=== PATIENT | male | born 1980 | race Hispanic/Latino ===

== ENCOUNTER 2021-07-24 10:51 | Observation (INO) | payer BC ==
[~2021-07-24] VITALS: Ht 172.7 cm; Wt 97.6 kg
[2021-07-24 12:06] LABS: BASOPHILS % (AUTO) 0.6 % (0.0-5.0); EOSINOPHILS % (AUTO) 2.3 % (0.0-8.0); HEMATOCRIT 50.1 % (42-54); LYMPHOCYTES % (AUTO) 24.8 % (21.0-51.0); MEAN CORPUSCULAR HEMOGLOBIN 30.1 pg (27.0-33.0); MEAN CORPUSCULAR HGB CONC 33.3 g/dL (32.0-36.0); MEAN CORPUSCULAR VOLUME 90.4 fL (79-99); MONOCYTES % (AUTO) 10.4 % (3.0-13.0); NEUTROPHILS % (AUTO) 61.6 % (40.0-77.0); PLATELET COUNT (AUTO) 143 K/uL (130-400); RED BLOOD CELL COUNT(AUTO) 5.54 MIL/uL (4.50-6.20); RED CELL DISTRIBUTION WIDTH 13.2 % (11.0-15.5); WHITE BLOOD COUNT (AUTO) 6.6 K/uL (4.8-10.8)
[2021-07-24 12:19] LABS: INR 0.99 (0.85-1.15); PROTHROMBIN TIME 10.8 SEC (9.6-11.6)
[2021-07-24 12:25] LABS: CREATININE 1.2 mg/dL (0.5-1.5); POTASSIUM 4.5 mmol/L (3.5-5.1)
[2021-07-24] MEDS ORDERED: NITROGLYCERIN 1GM OINT 1 INCH/1GM TD SCH (12:30)
[2021-07-24] MEDS ORDERED: NITROGLYCERIN 0.4 MG SL TAB SL PRN (12:30)
[2021-07-24] MEDS ORDERED: ASPIRIN 325MG TAB PO SCH (12:30)
[2021-07-24 12:37] LABS: ALBUMIN 4.2 g/dL (3.5-5.0); BILIRUBIN,TOTAL 0.7 mg/dL (0.2-1.0); TOTAL PROTEIN, SERUM 8.1 g/dL (6.0-8.3)
[2021-07-24 12:49] LABS: APPEARANCE,URINE Clear (CLEAR); BILIRUBIN,URINE Negative (NEGATIVE); COLOR,URINE Yellow (YELLOW); GLUCOSE, URINE (UA) >=1000 mg/dL (NEGATIVE); KETONES,URINE 15 mg/dL (NEGATIVE); LEUKOCYTE ESTERASE ,URINE Negative (NEGATIVE); NITRATE,URINE Negative (NEGATIVE); OCCULT BLOOD,URINE Negative (NEGATIVE); PROTEIN,URINE Negative (NEGATIVE); UROBILINOGEN,URINE 0.2 mg/dL (0.2-1.0)
[2021-07-24 12:56] LABS: AMPHET/METH SCREEN,URINE NEGATIVE (NEGATIVE); BARBITURATE SCREEN, URINE NEGATIVE (NEGATIVE); BENZODIAZEPINES SCREEN,URINE NEGATIVE (NEGATIVE); CANNABINOID SCREEN,URINE NEGATIVE (NEGATIVE); COCAINE SCREEN,URINE NEGATIVE (NEGATIVE); OPIATE SCREEN,URINE NEGATIVE (NEGATIVE); PHENCYCLIDINE SCREEN,URINE NEGATIVE (NEGATIVE)
[2021-07-24 13:24] LABS: BACTERIA,URINE Few /HPF (None Seen); RBC,URINE 0-1 /HPF (0-1); WBC,URINE 0-1 /HPF (0-1)
[2021-07-24] MEDS ORDERED: DEXTROSE 50%-WATER 50 ML DISP.SYRIN IV PRN (13:30)
[2021-07-24] MEDS ORDERED: MORPHINE 2 MG SYG IVP PRN (13:30)
[2021-07-24] MEDS ORDERED: GLUCAGON 1MG KIT 1 MG ML IM PRN (13:30)
[2021-07-24 16:30] VITALS: BP 121/76
[2021-07-24] MEDS: INSULIN HUMULIN R 100 UNIT/ML 3ML SQ SCH ×2 (16:30→21:00)
[2021-07-24] MEDS: ACETAMINOPHEN 325 MG TAB PO PRN (17:21)
[2021-07-24] MEDS ORDERED: IOHEXOL-350 75 ML VIAL IV ONE (19:28)
[2021-07-24 20:52] VITALS: BP 112/62
[2021-07-24] MEDS: METOPROLOL TARTRATE 25 MG TAB PO SCH (21:34)
[2021-07-25 00:42] VITALS: BP 110/55
[2021-07-25 03:44] VITALS: BP 115/61
[2021-07-25 05:19] LABS: BASOPHILS % (AUTO) 0.5 % (0.0-5.0); HEMATOCRIT 49.5 % (42-54); MEAN CORPUSCULAR HEMOGLOBIN 30.2 pg (27.0-33.0); MEAN CORPUSCULAR HGB CONC 33.1 g/dL (32.0-36.0); MEAN CORPUSCULAR VOLUME 91.2 fL (79-99); MONOCYTES % (AUTO) 10.2 % (3.0-13.0); NEUTROPHILS % (AUTO) 65.9 % (40.0-77.0); PLATELET COUNT (AUTO) 151 K/uL (130-400); RED BLOOD CELL COUNT(AUTO) 5.43 MIL/uL (4.50-6.20); RED CELL DISTRIBUTION WIDTH 13.2 % (11.0-15.5); WHITE BLOOD COUNT (AUTO) 10.5 K/uL (4.8-10.8)
[2021-07-25 05:33] LABS: BILIRUBIN,TOTAL 0.8 mg/dL (0.2-1.0); CREATININE 1.2 mg/dL (0.5-1.5); POTASSIUM 3.9 mmol/L (3.5-5.1); TOTAL PROTEIN, SERUM 7.8 g/dL (6.0-8.3)
[2021-07-25] MEDS: INSULIN HUMULIN R 100 UNIT/ML 3ML SQ SCH ×2 (07:30→11:30)
[2021-07-25 08:43] VITALS: BP 132/75
[2021-07-25] MEDS ORDERED: ENOXAPARIN SODIUM 40 MG/0.4 ML SYRINGE SQ SCH (09:00)
[2021-07-25] MEDS ORDERED: ASPIRIN 81 MG EC TAB PO SCH (09:00)
[2021-07-25] MEDS ORDERED: REGADENOSON 0.4 MG/5 ML PF SYG IVP SCH (10:30)
[2021-07-25 11:24] VITALS: BP 129/73
[2021-07-25] MEDS: METOPROLOL TARTRATE 25 MG TAB PO SCH (13:36)
[2021-07-25 16:26] VITALS: BP 116/70
[2021-07-25] MEDS: ACETAMINOPHEN 325 MG TAB PO PRN (18:12)
[2021-07-25 19:35] VITALS: BP 127/76
== END 2021-07-25 20:05 | disposition home or self-care (01) ==
LOC: EDH 10:51 → EDHIP 13:10 → INTOOBSV 13:22 → EDHIP 13:22 → OBSVTOIN 13:22 → UNDOADMOB 13:22 → EDHIP 15:17 → 4CH 15:17
PROVIDERS: ADMIT Internal Medicine Infectious Disease; ATTEND Internal Medicine Infectious Disease
DX: I20.9 Angina pectoris, unspecified (principal); Z20.822 Contact with and (suspected) exposure to COVID-19; I10 Essential (primary) hypertension; E11.9 Type 2 diabetes mellitus without complications; E78.5 Hyperlipidemia, unspecified; K21.9 Gastro-esophageal reflux disease without esophagitis; E78.00 Pure hypercholesterolemia, unspecified; K76.0 Fatty (change of) liver, not elsewhere classified; E66.9 Obesity, unspecified; Z90.49 Acquired absence of other specified parts of digestive tract; Z79.84 Long term (current) use of oral hypoglycemic drugs; Z79.899 Other long term (current) drug therapy
CPT/HCPCS: 36415 ×2; 71045; 71275; 78452; 80053 ×2; 80061 ×2; 80305; 81001; 82550 ×3; 82948 ×5; 83735 ×2; 83874 ×4; 83880; 84484 ×4; 85025 ×2; 85378; 85610; 87426; 93005; 93017; 96372; 96374; 99285; A9500 ×2; G0378 ×27; J1650; J2785; Q9967